=== PATIENT | male | born 1990 | race Two or more races ===

== ENCOUNTER 2019-06-07 13:50 | Emergency (ER) | payer SELFPAY ==
[2019-06-07] MEDS ORDERED: ONDANSETRON 4 MG TAB.RAPDIS PO ONE (14:27)
--- NOTE | 2019-06-07 14:28 | ER Document Report ---
ED Medical Screen (RME) - General Chief Complaint: Abdominal Pain Stated Complaint: ABDOMINAL PAIN/NAUSEA/VOMITING Time Seen by Provider: 06/07/19 14:23 Mode of Arrival: Ambulatory Information source: Patient Notes: 29-year-old male presents emergency department with complaints of nausea vomiting diarrhea that started around 4:00 this a.m. Complains of epigastric abdominal pain reports does have some history of reflux. Denies fever. Thought it was something that he ate but nobody else is sick. Epigastric area tender to palpate. I have greeted and performed a rapid initial assessment of this patient. A comprehensive ED assessment and evaluation of the patient, analysis of test results and completion of the medical decision making process will be conducted by additional ED providers. Dictation of this chart was performed using voice recognition software; therefore, there may be some unintended grammatical errors. TRAVEL OUTSIDE OF THE [place] IN LAST 30 DAYS: No - Related Data Allergies/Adverse Reactions: No Known Allergies Allergy (Verified 06/07/19 14:24) Past Medical History - Social History Chew tobacco use (# tins/day): No Frequency of alcohol use: Social Drug Abuse: None - Immunizations Immunizations up to date: Yes Hx Diphtheria, Pertussis, Tetanus Vaccination: Yes - december Physical Exam - Vital signs Vitals: Temp Pulse Resp BP Pulse Ox 97.3 F 84 18 138/85 H 99 06/07/19 13:56 06/07/19 13:56 06/07/19 13:56 06/07/19 13:56 06/07/19 13:56 Course - Vital Signs Vital signs: Temp Pulse Resp BP Pulse Ox 97.3 F 84 18 138/85 H 99 06/07/19 14:24 06/07/19 14:24 06/07/19 14:24 06/07/19 14:24 06/07/19 14:24
--- NOTE | 2019-06-07 15:14 | RADIOLOGY REPORT (SQ) ---
EXAM DESCRIPTION: U/S ABDOMEN LIMITED W/O DOP COMPLETED DATE/TIME: 06/07/2019 3:02 pm REASON FOR STUDY: epigastric abd pain COMPARISON: None. TECHNIQUE: Dynamic and static grayscale images acquired of the right upper quadrant and recorded on PACS. Additional selected color Doppler and spectral images recorded. LIMITATIONS: Study limited due to acoustical interference from fat or from air in the bowel. FINDINGS: PANCREAS: Visualized pancreas and duct normal. Tail of the pancreas poorly seen secondary to acoustical interference from fat or from air in the bowel. LIVER: No masses. Echotexture normal. LIVER VASCULATURE: Normal directional flow of the main portal vein and hepatic veins. GALLBLADDER: No stones. Normal wall thickness. No pericholecystic fluid. ULTRASOUND-DETECTED KRUSE'S SIGN: Negative. INTRAHEPATIC DUCTS AND COMMON DUCT: CBD and intrahepatic ducts normal caliber. No filling defects. INFERIOR VENA CAVA: Normal flow. AORTA: No aneurysm. RIGHT KIDNEY: Normal size. Normal echogenicity. No solid or suspicious masses. No hydronephrosis. No calcifications. PERITONEAL CAVITY AND RIGHT PLEURAL SPACE: No ascites or effusions. OTHER: No other significant finding. IMPRESSION: NORMAL RIGHT UPPER QUADRANT ULTRASOUND. PANCREAS PARTIALLY OBSCURED BY GAS. TECHNICAL DOCUMENTATION: JOB ID: [id number] [employer]- All Rights Reserved Reading location - IP/workstation name: [email or web address]
[2019-06-07 16:03] LABS: HEMATOCRIT 46.5 % (37.9-51.0); HEMOGLOBIN 16.1 g/dL (13.5-17.0); MEAN CORPUSCULAR HEMOGLOBIN 29.3 pg (27.0-33.4); MEAN CORPUSCULAR HGB CONC 34.6 g/dL (32.0-36.0); MEAN CORPUSCULAR VOLUME 85 fl (80-97); PLATELET COUNT 191 10^3/uL (150-450); RED CELL DISTRIBUTION WIDTH 13.1 % (11.5-14.0); WHITE BLOOD COUNT 14.1 10^3/uL (4.0-10.5)
[2019-06-07 16:04] LABS: APPEARANCE,URINE SLIGHTLY-CLOUDY; BILIRUBIN,URINE NEGATIVE (NEGATIVE); COLOR,URINE YELLOW; GLUCOSE, URINE NEGATIVE (NEGATIVE); KETONES,URINE NEGATIVE (NEGATIVE); LEUKOCYTE ESTERASE,URINE NEGATIVE (NEGATIVE); NITRITE,URINE NEGATIVE (NEGATIVE); PROTEIN,URINE 30 mg/dL (NEGATIVE); URINE SPECIFIC GRAVITY 1.031; UROBILINOGEN,URINE NEGATIVE mg/dL (<2.0)
[2019-06-07 16:25] LABS: ALBUMIN 5.1 g/dL (3.5-5.0); ALKALINE PHOSPHATASE 72 U/L (38-126); ANION GAP 13 (5-19); ASPARTATE AMINO TRANSFERASE 73 U/L (17-59); BILIRUBIN,DIRECT 0.2 mg/dL (0.0-0.4); BILIRUBIN,TOTAL 0.8 mg/dL (0.2-1.3); BLOOD UREA NITROGEN 13 mg/dL (7-20); CALCIUM 9.9 mg/dL (8.4-10.2); CARBON DIOXIDE 26 mmol/L (22-30); CHLORIDE 102 mmol/L (98-107); GLUCOSE 105 mg/dL (75-110); POTASSIUM 4.4 mmol/L (3.6-5.0); TOTAL PROTEIN 8.4 g/dL (6.3-8.2)
[2019-06-07 16:28] LABS: ABSOLUTE LYMPHOCYTES# (MANUAL) 0.3 10^3/uL (0.5-4.7); ABSOLUTE MONOCYTES # (MANUAL) 0.6 10^3/uL (0.1-1.4); BASOPHILS % (MANUAL) 0 % (0-2); EOSINOPHILS % (MANUAL) 0 % (0-6); LYMPHOCYTES % (MANUAL) 2 % (13-45); MONOCYTES % (MANUAL) 4 % (3-13); PLATELET COMMENT ADEQUATE; SEGMENTED NEUTROPHILS % (MAN) 94 % (42-78); TOTAL CELLS COUNTED 100
[2019-06-07] MEDS ORDERED: DICYCLOMINE HCL INJ 20 MG/2 ML AMPULE IM ONE (20:41)
[2019-06-07] MEDS ORDERED: METOCLOPRAMIDE HCL INJ/PF 10 MG/2 ML SDV IV ONE (20:41)
[2019-06-07] MEDS ORDERED: NORMAL SALINE 1000 ML 1,000 ML IV ONE (20:41)
--- NOTE | 2019-06-07 21:21 | ER Document Report ---
ED General - General Chief Complaint: Abdominal Pain Stated Complaint: ABDOMINAL PAIN/NAUSEA/VOMITING Time Seen by Provider: 06/07/19 14:23 Mode of Arrival: Ambulatory Notes: 29-year-old male presents with epigastric abdominal pain, nausea/vomiting/diarrhea that started this morning at 4 AM. Patient states that the pain is intermittent and nothing seems to make it better and nothing seems to make it worse. However when the pain comes on he immediately has to run to the bathroom and has an episode of diarrhea that is straight water at this point. Patient states no blood in diarrhea or emesis. Patient states he has a history of reflux however this pain feels different. Pain does not radiate. Patient denies any fever, chills, chest pain, dyspnea. TRAVEL OUTSIDE OF THE [place] IN LAST 30 DAYS: No - Related Data Allergies/Adverse Reactions: No Known Allergies Allergy (Verified 06/07/19 14:24) Past Medical History - General Information source: Patient - Social History Smoking Status: Never Smoker Chew tobacco use (# tins/day): No Frequency of alcohol use: Social Drug Abuse: None Family History: Reviewed & Not Pertinent Patient has suicidal ideation: No Patient has homicidal ideation: No - Immunizations Immunizations up to date: Yes Hx Diphtheria, Pertussis, Tetanus Vaccination: Yes - december Review of Systems - Review of Systems Notes: Constitutional: Negative for fever. HENT: Negative for sore throat. Eyes: Negative for visual changes. Cardiovascular: Negative for chest pain. Respiratory: Negative for shortness of breath. Gastrointestinal: Positive for abdominal pain, vomiting or diarrhea. Genitourinary: Negative for dysuria. Musculoskeletal: Negative for back pain. Skin: Negative for rash. Neurological: Negative for headaches, weakness or numbness. 10 point ROS negative except as marked above and in HPI. Physical Exam - Vital signs Vitals: Temp Pulse Resp BP Pulse Ox 97.3 F 84 18 138/85 H 99 06/07/19 13:56 06/07/19 13:56 06/07/19 13:56 06/07/19 13:56 06/07/19 13:56 - Notes Notes: GENERAL: Well-appearing, well-nourished and in no acute distress. HEAD: Atraumatic, normocephalic. EYES: Extraocular movements intact, sclera anicteric, conjunctiva are normal. NECK: Normal range of motion, supple without lymphadenopathy or JVD. LUNGS: Breath sounds clear to auscultation bilaterally and equal. No wheezes rales or rhonchi. HEART: Regular rate and rhythm without murmurs, rubs or gallops. ABDOMEN: Soft, mild tenderness to epigastric area. No guarding, no rebound. No masses appreciated. EXTREMITIES: Normal range of motion, no pitting or edema. No clubbing or cyanosis. NEUROLOGICAL: Cranial nerves II through XII grossly intact. Normal speech, normal gait. PSYCH: Normal mood, normal affect. SKIN: Warm, Dry, normal turgor, no rashes or lesions noted. Course - Re-evaluation Re-evalutation: 06/07/19 well-appearing, nontoxic. Mild tenderness to epigastric area. Lab work shows mildly leukocytosis at 14.1, AST of 73, and UA shows 30 proteins but is otherwise unremarkable. Abdomen ultrasound was completed which was unremarkable. Discussed all results with patient. Will give Bentyl and Reglan for abdominal pain and nausea and reassess. Discussed possible CT with patient versus risks versus benefits. Patient has decided to wait for reassessment before having CT scan. 06/07/19 22:44 Abd pain relieved with bentyl. Nausea relieved with Reglan - PO challenge passed. Strict return precautions given. Pt given referral to PCP. All questions/concerns addressed prior to discharge. - Vital Signs Vital signs: Temp Pulse Resp BP Pulse Ox 98.8 F 102 H 16 133/74 H 97 06/07/19 18:23 06/07/19 18:23 06/07/19 18:23 06/07/19 18:23 06/07/19 18:23 - Laboratory Result Diagrams: 06/07/19 15:32 06/07/19 15:32 Laboratory results interpreted by me: 06/07/19 06/07/19 06/07/19 15:32 15:32 15:32 WBC 14.1 H Seg Neuts % (Manual) 94 H Lymphocytes % (Manual) 2 L Abs Neuts (Manual) 13.3 H Abs Lymphs (Manual) 0.3 L AST 73 H Total Protein 8.4 H Albumin 5.1 H Urine Protein 30 H Discharge - Discharge Clinical Impression: Nausea vomiting and diarrhea Abdominal pain Qualifiers: Abdominal location: epigastric Qualified Code(s): R10.13 - Epigastric pain Condition: Stable Disposition: HOME, SELF-CARE Instructions: Abdominal Pain ([facility]), Antinausea Medication ([facility]), Reglan ([facility]) Additional Instructions: Your ultrasound was normal. Your lab work was reassuring today. Please take Bentyl as prescribed for abdominal pain. Please take Reglan as needed for nausea/vomiting. Please follow-up with primary care doctor PCP or clinic listed in 3 to 5 days. Return to the ER immediately if you start having any worsening symptoms, including fever, vomiting not controlled by medication, with worsening abdominal pain, abdominal pain moving around, blood in urine, burning with urinating, diarrhea, constipation, chest pain, shortness of breath, or any other symptoms that are concerning to you. Tu ultrasonido fue normal. [place] trabajo de laboratorio fue tranquilizador hoy. [place] Bentyl segn lo prescrito para el dolor abdominal. [place] Reglan segn sea necesario para las nuseas / vmitos. Amber un seguimiento con el mdico de atencin primaria PCP o clnica que figuran en 3 a 5 lizarraga. Regrese a la rusty de emergencias de inmediato si comienza a tener sntomas que empeoran, esme fiebre, vmitos no controlados por medicamentos, con empeoramiento del dolor abdominal, dolor abdominal en movimiento, hari en la orina, ardor al orinar, diarrea, estreimiento, dolor en el pecho, falta de aliento , o cualquier otro sntoma que le preocupe Prescriptions: Dicyclomine HCl [Bentyl 20 mg Tablet] 20 mg PO QID #40 tablet Metoclopramide HCl [Reglan 10 mg Tablet] 1 - 2 tab PO ASDIR PRN #25 tablet PRN Reason: Referrals: EDWARD MONTANO MD [ACTIVE STAFF] - Follow up in 3-5 days
[2019-06-07 23:12] VITALS: BP 132/70
== END 2019-06-07 23:12 | disposition home or self-care (01) ==
LOC: ER 13:50
DX: R11.2 Nausea with vomiting, unspecified (principal); R19.7 Diarrhea, unspecified; R10.13 Epigastric pain; R10.9 Unspecified abdominal pain
CPT/HCPCS: 99284; 96372; 96361; 96374; 36415; 83690; 85025; 80053; 81001; 76705; J0500; S0119; J2765; J7030